=== PATIENT | male | born 1985 | race Hispanic/Latino ===

== ENCOUNTER 2017-08-15 09:36 | Day surgery (SDC) | payer OTHER ==
[2017-08-15 10:04] VITALS: BMI 30.1
--- NOTE | 2017-08-15 12:00 | CP.SDSHP ---
Same Day Surgery H & P - History Proposed Procedure: EGD Pre-Op Diagnosis: belching - Allergies Allergies: Allergies No Known Allergies Allergy (Verified 08/15/17 10:04) - Physical Exam General Appearance: NAD Vital Signs: Vital Signs 08/15/17 10:08 Temperature 98.2 F Pulse Rate 63 Respiratory 16 Rate Blood Pressure 135/92 H O2 Sat by Pulse 100 Oximetry Mental Status: Alert & Oriented x3 Neuro: WNL Heart: WNL Lungs: WNL GI: WNL - {Optional Preform as Required} Abdomen: WNL - Impression Pt. Evaluated Today:Candidate for Anesthesia & Procedure: Yes - Date & Time Date: 08/15/17 Time: 12:00 Short Stay Discharge - Short Stay Discharge Admitting Diagnosis/Reason for Visit: ERUCTATION Disposition: HOME/ ROUTINE
[2017-08-15] MEDS ORDERED: Lidocaine 2% Inj (20ml) ONE (12:03)
[2017-08-15] MEDS ORDERED: Propofol 10 mg/ml Inj (20 ML) ONE (12:03)
[2017-08-15 12:35] VITALS: TEMP 98.4
[2017-08-15 13:40] VITALS: RESP 19
[2017-08-15 13:45] VITALS: BP 106/74; PULSE 60; O2SAT 97
== END 2017-08-15 13:10 | disposition home or self-care (01) ==
LOC: C.ENDO 09:36
PROVIDERS: ATTEND Internal Medicine Gastroenterology
DX: K29.70 Gastritis, unspecified, without bleeding (principal); R14.2 Eructation
CPT/HCPCS: 43239; 88305; 88312; 88313; 88342; J2704